=== PATIENT | male | born 1995 | race Caucasian/White ===

== ENCOUNTER 2018-06-24 03:30 | Emergency (ER) | payer OTHER ==
[~2018-06-24] VITALS: Ht 185.4 cm; Wt 83.9 kg
[2018-06-24 05:23] VITALS: BP 125/64
== END 2018-06-24 09:11 | disposition home or self-care (01) ==
LOC: ER 03:30
DX: S01.112A Laceration without foreign body of left eyelid and periocular area, initial encounter (principal); Z88.0 Allergy status to penicillin; Z90.89 Acquired absence of other organs; W10.9XXA Fall (on) (from) unspecified stairs and steps, initial encounter; Y92.89 Other specified places as the place of occurrence of the external cause; Y93.89 Activity, other specified; Y99.8 Other external cause status

== ENCOUNTER 2018-07-04 21:59 | Emergency (ER) | payer OTHER ==
[~2018-07-04] VITALS: Ht 185.4 cm; Wt 86.2 kg
[2018-07-04 23:42] LABS: HEMATOCRIT 37.1 % (42.0-52.0); HEMOGLOBIN 12.6 gm/dL (14.0-18.0); MCH 31.6 pg (26.0-34.0); MCV 92.9 fL (80.0-100.0); PLATELET COUNT 223 thou/uL (150-400); RBC 3.99 mil/uL (4.50-6.00); RDW 13.2 % (10.5-14.5)
[2018-07-04 23:50] LABS: CALCIUM 8.7 mg/dL (8.5-10.1); POTASSIUM 3.9 mmol/L (3.5-5.1)
[2018-07-05 00:20] LABS: ABSOLUTE NEUTROPHILS 4.7 thou/uL (1.4-8.2); ATYPICAL LYMPHS 2 %
[2018-07-05] MEDS ORDERED: NORCO 5-325 TA1 EACH PO (00:41)
[2018-07-05] MEDS ORDERED: CLINDAMYCIN HC300 MG PO (00:41)
[2018-07-05 01:15] VITALS: BP 160/87
== END 2018-07-05 01:16 | disposition home or self-care (01) ==
LOC: ER 21:59
PROVIDERS: Emergency Medicine
DX: M70.51 Other bursitis of knee, right knee (principal); Y93.89 Activity, other specified; L03.115 Cellulitis of right lower limb; Z88.0 Allergy status to penicillin; Z90.89 Acquired absence of other organs